=== PATIENT | female | born 1950 | race Caucasian/White ===

== ENCOUNTER 2019-10-02 11:16 | Emergency (ER) | payer MEDICARE ==
--- NOTE | 2019-10-02 11:48 | EDM.PDOC ---
ED HPI GENERAL MEDICAL PROBLEM - General Chief Complaint: Lower Extremity Injury/Pain Stated Complaint: GROIN/PAIN FROM FALL Time Seen by Provider: 10/02/19 11:20 Source of Information: Reports: Patient History Limitations: Reports: No Limitations - History of Present Illness INITIAL COMMENTS - FREE TEXT/NARRATIVE: 69-year-old female fell down a couple of steps last night and injured her right hip and pelvis. She had no difficulty getting up and going to bed. She slept to the night fairly well. She awoke this morning with increased pain. Her pain is moderately severe when she gets up from a lying down position and when she walks. It is mild and tolerable when she is at rest. She denies any other injuries including her neck, chest and back. She is taking ibuprofen and finding it helps mild pain but does not control her moderate pain. She and her have a cabin in the area and reside in the [facility]. They are returning home on Thursday. - Related Data Allergies Allergy/AdvReac Type Severity Reaction Status Date / Time No Known Allergies Allergy Verified 10/02/19 11:41 Home Meds: Home Meds cloNIDine [Catapres] 0.1 mg PO BID 10/02/19 [History] lisinopriL [Lisinopril] 20 mg PO DAILY 10/02/19 [History] Past Medical History Cardiovascular History: Reports: Hypertension - Past Surgical History HEENT Surgical History: Reports: Other (See Below) Other HEENT Surgeries/Procedures: nose surgery d/t bloody nose that wouldnt' stop. Social & Family History - Tobacco Use Smoking Status *Q: Heavy Tobacco Smoker Years of Tobacco use: 30 Packs/Tins Daily: 1 - Caffeine Use Caffeine Use: Reports: Coffee - Alcohol Use Days Per Week of Alcohol Use: 7 Number of Drinks Per Day: 2 Total Drinks Per Week: 14 - Recreational Drug Use Recreational Drug Use: No Review of Systems - Review of Systems Review Of Systems: See Below Constitutional: Reports: No Symptoms Respiratory: Reports: Cough. Denies: Shortness of Breath Cardiovascular: Denies: Chest Pain, Lightheadedness GI/Abdominal: Denies: Abdominal Pain, Nausea, Vomiting Musculoskeletal: Reports: Other (Pain in her right groin.). Denies: Neck Pain, Back Pain Skin: Reports: No Symptoms Neurological: Denies: Confusion, Headache, Numbness, Weakness Psychiatric: Reports: No Symptoms ED EXAM, GENERAL - Physical Exam Exam: See Below Exam Limited By: No Limitations General Appearance: Alert, WD/WN, Mild Distress Head: Atraumatic Neck: Normal Inspection, Supple, Full Range of Motion Respiratory/Chest: Lungs Clear, Chest Non-Tender GI/Abdominal: Non-Tender Back Exam: Normal Inspection, Full Range of Motion Extremities: Normal Inspection, Other (She has pain with right hip flexion as well as internal rotation. She has no discomfort when her pelvis is rocked from side to side or when there is anterior pressure over the anterior iliac spines.) Psychiatric: Normal Affect Course - Vital Signs Text/Narrative:: This patient fell yesterday and has a right sided pelvic fracture. She is being discharged home with crutches and pain medication. She will follow-up with orthopedics in the clinic this week. She will advance exercise as tolerated. She will return to the ER if she has any increased problems or concerns. Last Recorded V/S: Last Vital Signs Temp 36.3 C 10/02/19 11:39 Pulse 73 10/02/19 11:39 Resp 16 10/02/19 11:39 BP 187/94 H 10/02/19 11:39 Pulse Ox 97 10/02/19 11:39 Departure - Departure Time of Disposition: 13:31 Disposition: Home, Self-Care 01 Condition: Good Clinical Impression: Pelvic fracture - Discharge Information Referrals: PCP,None [Primary Care Provider] - Forms: ED Department Discharge Additional Instructions: advance exercise as tolerated. Take the pain medication as prescribed. Follow up with orthopedics this week. Return to the ER as needed. Sepsis Event Note (ED) - Evaluation Sepsis Screening Result: No Definite Risk - Focused Exam Vital Signs: Vital Signs Temp Pulse Resp BP Pulse Ox 10/02/19 11:39 36.3 C 73 16 187/94 H 97 10/02/19 11:32 36.3 C 73 16 187/94 H 97
--- NOTE | 2019-10-02 13:05 | CRLCT ---
Indication: Injury Technique: Routine noncontrast CT pelvis. Please note that all CT scans at this facility use dose modulation, iterative reconstruction, and/or weight-based dosing when appropriate to reduce radiation dose to as low as reasonably achievable. Comparison: No comparison Findings: There is a subtle nondisplaced fracture involving the right anterior acetabulum/high pubic ramus. There may be a subtle nondisplaced fracture of the right inferior pubic ramus as well. The left pubic rami are intact. No definitive sacral fracture by CT. Degenerative changes at the sacroiliac joints and lower lumbar spine as well as at both hips. No pelvic soft tissue mass. The bladder is normal. Sigmoid diverticulosis. Rectal stool. Impression: Nondisplaced fracture involving the right anterior acetabulum/high right pubic ramus. A nondisplaced right inferior pubic ramus fracture may also be present. No definitive sacral fracture by CT. No femoral neck fracture. Please note that all CT scans at this facility use dose modulation, iterative reconstruction, and/or weight-based dosing when appropriate to reduce radiation dose to as low as reasonably achievable. Dictated by Lloyd Elizabeth MD @ Oct 02 2019 12:52PM Signed by Dr. Lloyd Elizabeth @ Oct 02 2019 1:04PM
== END 2019-10-02 14:03 | disposition home or self-care (01) ==
LOC: JP.ED 11:16
DX: S32.9XXA Fracture of unspecified parts of lumbosacral spine and pelvis, initial encounter for closed fracture (principal); I10 Essential (primary) hypertension; F17.290 Nicotine dependence, other tobacco product, uncomplicated; Z79.899 Other long term (current) drug therapy; W10.9XXA Fall (on) (from) unspecified stairs and steps, initial encounter
CPT/HCPCS: 72192; 99283-25